=== PATIENT | female | born 1970 | race Caucasian/White ===

== ENCOUNTER 2019-03-29 11:20 | Day surgery (SDC) | payer BC ==
[2019-03-29] MEDS ORDERED: LIDOCAINE 4% SOLUTION 50 ML BTL (12:11)
[2019-03-29] MEDS ORDERED: PROPOFOL 20 ML (12:18)
[2019-03-29] MEDS ORDERED: LIDOCAINE 2% (SDV) 5 ML INJ (12:18)
[2019-03-29] MEDS ORDERED: MIDAZOLAM 1 MG/ML 2 ML INJ (12:18)
[2019-03-29] MEDS ORDERED: FENTAnyl 50 MCG/ML VIAL (12:19)
[2019-03-29] MEDS ORDERED: ETOMIDATE 20 MG INJ (12:19)
== END 2019-03-29 15:03 | disposition home or self-care (01) ==
LOC: GIL 11:20
DX: K21.9 Gastro-esophageal reflux disease without esophagitis (principal); K29.60 Other gastritis without bleeding
CPT/HCPCS: 43239; 88305